=== PATIENT | female | born 1975 | race Caucasian/White ===

== ENCOUNTER 2017-08-17 09:12 | Day surgery (SDC) | payer OTHER ==
[~2017-08-17] VITALS: Ht 157.5 cm; Wt 55.6 kg
[2017-08-17 09:48] VITALS: Ht 157.5 cm; Wt 55.6 kg
[2017-08-17 10:28] VITALS: BP 91/53; PULSE 71; RESP 24
[2017-08-17] MEDS ORDERED: VITAMINS DAILY (10:32)
[2017-08-17] MEDS ORDERED: FERROUS SULFATE (10:32)
--- NOTE | 2017-08-17 11:46 | OPPN ---
Date/Time of Note Date/Time of Note DATE: 08/17/17 TIME: 11:44 Operative Report Preoperative Diagnosis Iron deficiency anemia Abdominal pain Postoperative Diagnosis Gastritis with erosions Gastric mucosal biopsies were taken for H. pylori test 2 small sigmoid polyps were removed using biopsy forceps Internal hemorrhoids Operation/Procedure Performed Esophagogastroduodenoscopy and biopsy Colonoscopy and biopsy Surgeon see signature line cardiovascular physician assistant None Anesthesia: moderate sedation Estimated blood loss: none Transfusion Required none Specimen Gastric mucosal biopsy Colon polyps Small bowel biopsy Grafts/Implants none Complications none MEL HARTLEY MD Aug 17, 2017 11:46
[2017-08-17] MEDS ORDERED: MIDAZOLAM 1 MG/ML 2 ML INJ ONE ×3 (11:51)
[2017-08-17] MEDS ORDERED: FENTAnyl 50 MCG/ML VIAL ONE (11:51)
--- NOTE | 2017-08-17 14:06 | GILP ---
DATE OF PROCEDURE: NAME OF PROCEDURES: 1. Esophagogastroduodenoscopy and biopsy. 2. Colonoscopy and biopsy. SURGEON: Mel Salazar MD PREOPERATIVE DIAGNOSES: 1. Iron deficiency anemia. 2. Abdominal pain. POSTOPERATIVE DIAGNOSES 1. Gastritis with erosions. 2. Gastric mucosal biopsies were taken for Helicobacter pylori test. 3. Small bowel biopsies were taken to rule out celiac disease. 4. Colonoscopy all the way to the cecum. 5. Three small sigmoid colon polyps were removed using the biopsy forceps. 6. Internal hemorrhoids. INDICATION FOR THE PROCEDURE: Ms. Adeline Mireles is a 41-year-old female patient who had iron defic iency anemia. She was also complaining of upper abdominal pain. The patient was scheduled for endo scopy and colonoscopy for further evaluation. The procedures and possible complications are well explained to the patient. The patient understood and consented to the procedure. DESCRIPTION OF PROCEDURE: Under the influence of fentanyl and Versed, the gastroscope was carefully introduced into the esophagus and under direct vision it was advanced to the stomach and through th e pylorus into the duodenal bulb and descending duodenum. FINDINGS: ESOPHAGUS: The mucosa was normal. STOMACH: The patient had gastritis with erosions. Gastric mucosal biopsies were taken for H. pylor i test. DUODENUM: Normal. Small bowel biopsies were taken to rule out celiac disease. The colonoscope was carefully introduced in the rectum and under direct vision it was advanced all t he way to the cecum. FINDINGS: The patient had 3 small sigmoid colon polyps and they were removed using biopsy forceps. She had internal hemorrhoids. She tolerated the procedures very well and there was no complication from the procedures. At the en d of the procedures, she was awake with stable vital signs and she was discharged home to the care o f her family. IMPRESSION: Please see postoperative diagnosis. PLAN: 1. Pantoprazole 40 mg p.o. q.a.m. 2. Await histopathology reports. Dictated By: MEL MCLEOD/LIZZY Conf#: [id number] DID#: [id number]
== END 2017-08-17 12:32 | disposition home or self-care (01) ==
LOC: GIL 09:12
PROVIDERS: ATTEND Internal Medicine Gastroenterology
DX: D50.9 Iron deficiency anemia, unspecified (principal); D12.5 Benign neoplasm of sigmoid colon; K29.70 Gastritis, unspecified, without bleeding; K64.8 Other hemorrhoids
CPT/HCPCS: 43239; 45380; 84703; 87081; 88305; J2250; J3010; Z7610